=== PATIENT | female | born 1985 | race Two or more races ===

== ENCOUNTER 2017-01-11 18:48 | Day surgery (SDC) | payer BC ==
[~2017-01-11] VITALS: Ht 157.5 cm; Wt 59.9 kg
[2017-01-11] MEDS ORDERED: SODIUM CHLORIDE FLUSH 10ML SYR IVF ONE (19:30)
[2017-01-11] MEDS ORDERED: SODIUM CHLORIDE 0.9% 1,000ML IVBOLUS ONE (19:30)
[2017-01-11 19:53] LABS: HEMATOCRIT 37.9 % (34.6-47.8); HEMOGLOBIN 12.8 g/dL (11.7-16.4); WHITE BLOOD COUNT 9.2 x10^3/uL (3.4-10)
[2017-01-11 20:02] LABS: BLOOD UREA NITROGEN 8 mg/dL (7-18)
[2017-01-11 20:03] LABS: ASPARTATE AMINO TRANSFERASE 14 U/L (15-37)
[2017-01-11] MEDS ORDERED: OMNIPAQUE 350 MG/ML, 100ML BOTTLE ONE (23:17)
[2017-01-12] MEDS ORDERED: HYDROmorphone 1 MG/ML, 1ML ONE (01:13)
[2017-01-12] MEDS ORDERED: HYDROmorphone 1 MG/ML, 1ML IVPush PRN ×2 (01:30→02:30)
[2017-01-12] MEDS ORDERED: SODIUM CHLORIDE 0.9% 1,000 ML IV ONE (02:29)
[2017-01-12] MEDS ORDERED: ONDANSETRON 2MG/ML, 2ML IVPush PRN ×3 (02:30→06:30)
[2017-01-12] MEDS ORDERED: MIDAZOLAM 1 MG/ML, 2ML ONE (03:15)
[2017-01-12] MEDS ORDERED: FENTANYL PF 250 MCG/5ML ONE (03:15)
[2017-01-12] MEDS ORDERED: GLYCOPYRROLATE 0.2MG/1ML, 5ML ONE (03:16)
[2017-01-12] MEDS ORDERED: SUCCINYLCHOLINE 20 MG/ML, 10ML ONE (03:16)
[2017-01-12] MEDS ORDERED: ROCURONIUM 10 MG/ML,10ML ONE (03:16)
[2017-01-12] MEDS ORDERED: PROPOFOL 10 MG/ML, 20ML ONE (03:16)
[2017-01-12] MEDS ORDERED: DEXAMETHASONE 4 MG/ML, 1ML ONE (03:16)
[2017-01-12] MEDS ORDERED: NEOSTIGMINE 1 MG/ML, 10ML ONE (03:16)
[2017-01-12] MEDS ORDERED: CEFAZOLIN 1,000 MG ONE (03:16)
[2017-01-12] MEDS ORDERED: ONDANSETRON 2MG/ML, 2ML ONE (03:16)
[2017-01-12] MEDS ORDERED: BUPIVACAINE/PF 0.5% ONE (03:19)
[2017-01-12] MEDS ORDERED: LIDOCAINE 4%, 4 ML SYR/CANN TP ONE (03:20)
[2017-01-12] MEDS ORDERED: EPINEPHRINE 1 MG/ML, 1ML ONE (03:20)
[2017-01-12] MEDS ORDERED: OXYcodone 5 MG/5 ML ORAL.SOL UDC PO PRN (03:30)
[2017-01-12] MEDS ORDERED: FENTANYL PF 100 MCG/2ML IV PRN (03:30)
[2017-01-12] MEDS ORDERED: HYDROmorphone 1 MG/ML, 1ML IV PRN (03:30)
[2017-01-12] MEDS ORDERED: ACETAMINOPHEN 325 MG TABLET PO PRN (03:30)
[2017-01-12] MEDS ORDERED: PROMETHAZINE 25 MG/ML, 1ML IV PRN (03:30)
[2017-01-12] MEDS ORDERED: CEFOTETAN PMX 1GM/50ML 50 ML IVPB ONE (03:33)
[2017-01-12] MEDS ORDERED: BUPIVACAINE/PF 0.5% INFIL ONE (04:05)
[2017-01-12] MEDS ORDERED: EPINEPHRINE 1 MG/ML, 1ML INFIL ONE (04:06)
[2017-01-12] MEDS ORDERED: ACETAMINOPHEN 650 MG/20.3 ML UDC ONE (04:56)
[2017-01-12] MEDS ORDERED: MEPERIDINE/PF 25MG/0.5ML ONE (04:57)
[2017-01-12] MEDS ORDERED: OXYcodone 5 MG/5 ML ORAL.SOL UDC ONE (04:57)
[2017-01-12] MEDS: MEPERIDINE/PF 25MG/0.5ML IVPush PRN ×2 (04:58→05:14)
[2017-01-12] MEDS ORDERED: KETOROLAC 30 MG/1 ML ONE (05:03)
[2017-01-12] MEDS ORDERED: KETOROLAC 30 MG/1 ML IVPush PRN ×2 (05:30→06:30)
[2017-01-12 05:52] VITALS: BP 120/76
[2017-01-12] MEDS ORDERED: LACTATED RINGERS 1,000 ML IV SCH (06:09)
[2017-01-12] MEDS ORDERED: morphine SULFATE 10 MG/ML, 1ML IVPush PRN (06:30)
[2017-01-12] MEDS ORDERED: OXYcodone/APAP 5/325MG TABLET PO PRN (06:30)
[2017-01-12] MEDS ORDERED: OXYC-302 PO (06:47)
== END 2017-01-12 07:44 | disposition home or self-care (01) ==
LOC: ED 22:53 → EDIP 01-12 02:29 → UNDOADMIN 01-12 02:29 → EDIP 01-12 05:45 → 4NOR 01-12 05:45 → SDC 01-12 06:14 → UNDODISIN 01-12 07:44 → SDC 01-12 07:44
PROVIDERS: ATTEND Surgery
DX: K35.80 Unspecified acute appendicitis (principal)
CPT/HCPCS: 36415; 74176; 74177; 76856; 80053; 81003; 84703; 85025; 88304; 96361; 96374; J0171; J0690; J1100; J1170; J1885; J2175; J2250; J2405; J2704; J2710; J3010; J3490; Q9967; J0330; J7030; J7120; S0074